=== PATIENT | male | born 1975 | race American Indian/Alaskan Native ===

== ENCOUNTER 2019-03-28 21:28 | Inpatient (IN) | payer MEDICAID ==
[2019-03-28] MEDS ORDERED: Sodium Chloride 0.9% 1,000 ML IV ONE (21:48)
--- NOTE | 2019-03-28 21:48 | C.PDOC ---
History Of Present Illness 43 y/o male comes in complaining of abdominal pain, nausea, and vomiting x2 days. Patient drinks socially. Denies recent alcohol use. Denies fever or chills. Time Seen by Provider: 03/28/19 21:48 Chief Complaint (Nursing): Abdominal Pain History Per: Patient History/Exam Limitations: no limitations Onset/Duration Of Symptoms: Days Current Symptoms Are (Timing): Still Present Severity: Moderate Pain Scale Rating Of: 4 Location Of Pain/Discomfort: Diffuse Radiation Of Pain To:: None Associated Symptoms: Nausea, Vomiting. denies: Fever, Chills Exacerbating Factors: None Alleviating Factors: None Last Bowel Movement: Today Recent travel outside of the [place]: No Past Medical History Reviewed: Historical Data, Nursing Documentation, Vital Signs Vital Signs: Last Vital Signs Temp 98.3 F 03/28/19 21:38 Pulse 63 03/28/19 21:38 Resp 16 03/28/19 21:38 BP 168/92 H 03/28/19 21:38 Pulse Ox 100 03/28/19 21:38 Primary Care Provider: Non [facility] Provider, Family History: States: No Known Family Hx - Social History Hx Alcohol Use: Yes Hx Substance Use: No Review Of Systems Constitutional: Negative for: Fever, Chills Cardiovascular: Negative for: Chest Pain, Palpitations Respiratory: Negative for: Cough, Shortness of Breath Gastrointestinal: Positive for: Nausea, Vomiting, Abdominal Pain Neurological: Negative for: Weakness, Numbness Physical Exam - Physical Exam Appears: Non-toxic, No Acute Distress Skin: Warm, Dry Head: Normacephalic Eye(s): bilateral: Normal Inspection Oral Mucosa: Moist Neck: Trachea Midline, Supple Cardiovascular: Rhythm Regular Respiratory: No Rales, No Rhonchi, No Wheezing Gastrointestinal/Abdominal: Soft, Tenderness (diffusely tender), No Distention, No Guarding, No Rebound, Hernia (right inguinal , small, reducible) Back: No CVA Tenderness Extremity: No Tenderness Extremity: Bilateral: Normal Color And Temperature Pulses: Left Dorsalis Pedis: Normal, Right Dorsalis Pedis: Normal Neurological/Psych: Oriented x3 Gait: Steady ED Course And Treatment - Laboratory Results Result Diagrams: 03/28/19 22:16 03/28/19 22:16 O2 Sat by Pulse Oximetry: 100 (RA) Pulse Ox Interpretation: Normal Progress Note: Plan: Labs, UA, IV fluids, toradol, zofran. Disposition Discussed With Dr.: Greg Glaser Comment: accepted the pt on his service and took over the care at 2:48 AM Doctor Will See Patient In The: ED Counseled Patient/Family Regarding: Studies Performed, Diagnosis - Disposition Disposition: HOSPITALIZED Disposition Time: 21:48 Condition: FAIR Forms: [facility] ([place]ian) - POA Present On Arrival: Poor Glycemic Control - Clinical Impression Clinical Impression: Abdominal pain, Acute appendicitis - Scribe Statement The provider has reviewed the documentation as recorded by the Alvina Hudson Provider Attestation: All medical record entries made by the Alvina were at my direction and perso diane dictated by me. I have reviewed the chart and agree that the record accurately reflects my personal performance of the history, physical exam, medical decision making, and the department course for this patient. I have also personally directed, reviewed, and agree with the discharge instructions and disposition. Decision To Admit - Pt Status Changed To: Hospital Disposition Of: Inpatient - Admit Certification Admit to Inpatient:: After my assessment, the patient will require hospitali zation for at least two midnights. This is because of the severity of symptoms shown, intensity of services needed, and/or the medical risk in this patient being treated as an outpatient. - InPatient: Physician Admission Certification:: After my assessment, the patient will require hospitalization for at least two midnights. This is because of the severity of symptoms shown, intensity of services needed, and/or the medical risk in this patient being treated as an outpatient. - . Bed Request Type: Regular Admitting Physician: Greg Glaser Patient Diagnosis: Abdominal pain, Acute appendicitis
[2019-03-28] MEDS ORDERED: Sodium Chloride 0.9% 1,000 ML ONE (22:04)
[2019-03-28 22:22] LABS: BASO % 0.3 % (0.0-2.0); HEMOGLOBIN 13.3 g/dL (12.0-18.0); LYMPH # 0.7 K/uL (1.0-4.3); LYMPH % 6.8 % (20.0-40.0); MEAN CELL VOLUME 83.8 fL (80.0-94.0); MEAN CORPUSCULAR HEMOGLOBIN 27.6 pg (27.0-31.0); MEAN CORPUSCULAR HGB CONC 32.9 g/dL (33.0-37.0); MEAN PLATELET VOLUME 9.4 fL (7.2-11.7); MONO # 0.2 K/uL (0.0-0.8); MONO % 2.4 % (0.0-10.0); NEUT # 8.8 K/uL (1.8-7.0); NEUT % 90.5 % (50.0-75.0); PLATELET COUNT 201 K/uL (130-400); RBC 4.83 Mil/uL (4.40-5.90); RED CELL DISTRIBUTION WIDTH 13.2 % (11.5-14.5); WHITE BLOOD COUNT 9.7 K/uL (4.8-10.8)
[2019-03-28 22:24] LABS: SQUAMOUS EPITHIAL 1 /hpf (0-5); URINE BILIRUBIN NEGATIVE (NEGATIVE); URINE BLOOD 2+ (NEGATIVE); URINE CLARITY Hazy (Clear); URINE COLOR Yellow (YELLOW); URINE GLUCOSE (UA) NORMAL (Normal); URINE LEUKOCYTE ESTERASE NEG Leu/uL (Negative); URINE PROTEIN NEGATIVE (NEGATIVE); URINE UROBILINOGEN NORMAL mg/dL (0.2-1.0)
[2019-03-28 22:32] LABS: ALB/GLOB RATIO 1.1 (1.0-2.1); ALBUMIN 4.5 g/dL (3.5-5.0); ALT/SGPT 31 U/L (21-72); AST/SGOT 25 U/L (17-59); BLOOD UREA NITROGEN 11 mg/dL (9-20); CALCIUM 9.7 mg/dl (8.6-10.4); GFR NON-AFRICAN AMERICAN > 60; LIPASE 81 U/L (23-300)
[2019-03-28 23:10] LABS: LYMPHOCYTE 7 % (20-40); MONOCYTE 3 % (0-10); NEUTROPHIL 90 % (50-75); TOTAL CELLS COUNTED 100
[2019-03-28 23:11] LABS: PLATELET ESTIMATE NORMAL (NORMAL)
[2019-03-29] MEDS ORDERED: Piperacillin/Tazobact 3.375 gm 100 ML IVPB STA (02:40)
[2019-03-29] MEDS ORDERED: Piperacillin/Tazobact 3.375 gm 100 ML IVPB ONE (02:53)
[2019-03-29] MEDS ORDERED: Piperacillin/Tazobact 3.375 GM in Sodium Chloride 100 ML IVPB SCH (05:15)
--- NOTE | 2019-03-29 05:16 | CP.PCM.HP ---
History of Present Illness - History of Present Illness History of Present Illness: H&P Note for Dr. Glaser HPI: 43 year old male, with no significant past medical history, who presents to [facility] with RLQ pain for 2 days duration. Patient states 2 days ago he was eating oxtail and started having vague periumbilical pain. After a few hours the pain radiated to the RLQ, described as sharp, throbbing, uncomfortable. He had several bouts of nausea and vomiting yesterday and was unable to tolerate anything by mouth. Admits to chills, denies fevers. Pain medication from ER helped with symptoms. No known aggravating or alleviating factors. ROS otherwise negative except as stated above. PMH: Denies PSH: Oral surgery childhood FH: Mother w/ diabetes SH: Social drinker, denies tobacco or illicit drug use. Heavy lifting for work. ALL: NKDA Meds: None Present on Admission - Present on Admission Any Indicators Present on Admission: No Review of Systems - Constitutional Constitutional: Chills. absent: Fever, Weight Loss - EENT Eyes: absent: Blurred Vision, Change in Vision - Cardiovascular Cardiovascular: absent: Chest Pain, Dyspnea - Respiratory Respiratory: absent: Cough, Dyspnea - Gastrointestinal Gastrointestinal: Abdominal Pain, Bloating, Nausea, Vomiting. absent: Constipation, Diarrhea - Genitourinary Genitourinary: absent: Difficulty Urinating, Dysuria - Musculoskeletal Musculoskeletal: absent: Back Pain, Neck Pain - Integumentary Integumentary: absent: Bleeding Lesions, Changing Lesions - Neurological Neurological: absent: Confusion, Dizziness - Psychiatric Psychiatric: absent: Anxiety, Depression Past Patient History - Past Medical History & Family History Past Medical History?: No - Past Social History Smoking Status: Never Smoked - MUSCULOSKELETAL/RHEUMATOLOGICAL Hx Falls: No - PSYCHIATRIC Hx Substance Use: No - SURGICAL HISTORY Hx Surgeries: No - ANESTHESIA Hx Anesthesia: Yes Hx Anesthesia Reactions: No Meds Allergies/Adverse Reactions: Allergies Allergy/AdvReac Type Severity Reaction Status Date / Time No Known Allergies Allergy Unverified 03/28/19 21:41 Physical Exam - Constitutional Appears: Well, Non-toxic, No Acute Distress - Head Exam Head Exam: ATRAUMATIC, NORMAL INSPECTION, NORMOCEPHALIC - Eye Exam Eye Exam: EOMI - ENT Exam ENT Exam: Mucous Membranes Moist - Respiratory Exam Respiratory Exam: NORMAL BREATHING PATTERN. absent: Wheezes, Respiratory Distress - Cardiovascular Exam Cardiovascular Exam: REGULAR RHYTHM. absent: Tachycardia - GI/Abdominal Exam GI & Abdominal Exam: Distended, Hernia, Normal Bowel Sounds, Soft, Tenderness Additional comments: reducible right inguinal hernia - Extremities Exam Extremities exam: Positive for: normal inspection, pedal pulses present - Neurological Exam Neurological exam: Alert, Oriented x3 - Psychiatric Exam Psychiatric exam: Normal Affect, Normal Mood - Skin Skin Exam: Dry, Intact, Normal Color, Warm Results - Vital Signs Recent Vital Signs: Last Vital Signs Temp 98.3 F 03/29/19 03:45 Pulse 75 03/29/19 03:45 Resp 20 03/29/19 03:45 BP 161/94 H 03/29/19 03:45 Pulse Ox 99 03/29/19 03:50 - Labs Result Diagrams: 03/28/19 22:16 03/28/19 22:16 Labs: Laboratory Results - last 24 hr 03/28/19 03/28/19 03/28/19 22:16 22:16 22:16 WBC 9.7 RBC 4.83 Hgb 13.3 Hct 40.4 MCV 83.8 MCH 27.6 MCHC 32.9 L RDW 13.2 Plt Count 201 MPV 9.4 Neut % (Auto) 90.5 H Lymph % (Auto) 6.8 L [place] % (Auto) 2.4 Eos % (Auto) 0.0 Baso % (Auto) 0.3 Neut # (Auto) 8.8 H Lymph # (Auto) 0.7 L [place] # (Auto) 0.2 Eos # (Auto) 0.0 Baso # (Auto) 0.0 Neutrophils % (Manual) 90 H Lymphocytes % (Manual) 7 L Monocytes % (Manual) 3 Platelet Estimate Normal RBC Morphology Normal Sodium 137 Potassium 3.7 Chloride 99 Carbon Dioxide 26 Anion Gap 16 BUN 11 Creatinine 1.0 Est GFR ( Amer) > 60 Est GFR (Non-Af Amer) > 60 Random Glucose 137 H Calcium 9.7 Total Bilirubin 0.5 AST 25 ALT 31 Alkaline Phosphatase 73 Total Protein 8.7 H Albumin 4.5 Globulin 4.2 H Albumin/Globulin Ratio 1.1 Lipase 81 Urine Color Yellow Urine Clarity Hazy Urine pH 5.0 Ur Specific [place] 1.024 Urine Protein Negative Urine Glucose (UA) Normal Urine Ketones 2+ H Urine Blood 2+ H Urine Nitrate Negative Urine Bilirubin Negative Urine Urobilinogen Normal Ur Leukocyte Esterase Neg Urine WBC (Auto) 1 Urine RBC (Auto) 4 H Ur Squamous Epith Cells 1 Assessment & Plan - Assessment and Plan (Free Text) Assessment: 43M w/ acute appendicitis also noted to have reducible, right inguinal hernia Plan: NPO IVF IV Abx Antiemetics and analgesics AM labs, coags Type and Screen CXR Proceed to OR later today D/w Dr. Jailyn Cruz PGY1
[2019-03-29 06:32] LABS: INR 1.2; PARTIAL THROMBOPLASTIN TIME 31.3 SECONDS (21-34); PROTHROMBIN TIME 12.7 SECONDS (9.7-12.2)
[2019-03-29 06:33] LABS: BLOOD UREA NITROGEN 12 mg/dL (9-20); CALCIUM 8.9 mg/dl (8.6-10.4); GFR NON-AFRICAN AMERICAN > 60; HEMOGLOBIN 12.7 g/dL (12.0-18.0); MEAN CELL VOLUME 82.3 fL (80.0-94.0); MEAN PLATELET VOLUME 9.5 fL (7.2-11.7); RBC 4.55 Mil/uL (4.40-5.90)
[2019-03-29] MEDS: Lactated Ringer's 1,000 ML IV SCH ×2 (06:51→14:38)
[2019-03-29] MEDS ORDERED: Bupivacaine 0.5%/Epi 1:200,000 (10 ML SOL) ONE (10:00)
[2019-03-29] MEDS ORDERED: Midazolam 2 MG/2 ML VIAL ONE (10:08)
[2019-03-29] MEDS ORDERED: Propofol 10 mg/ml Inj (20 ML) ONE (10:09)
[2019-03-29] MEDS: Piperacill/Tazo 3.375gm in Dex 3.375 GM/50 ML BAG IVPB SCH ×4 (10:10→20:56)
[2019-03-29] MEDS ORDERED: HYDROmorphone 0.5 mg/0.5 ml ISec IVP PRN (10:42)
[2019-03-29] MEDS ORDERED: Neostigmine 1:1000 (1 mg/ml) Inj ONE (10:51)
[2019-03-29] MEDS ORDERED: Succinylcholine Chloride 20 mg/ml Syr (5 ml) IV ONE (10:51)
--- NOTE | 2019-03-29 11:23 | PCM.SURG1 ---
Surgeon's Initial Post Op Note - Surgeon's Notes Surgeon: Dr. Glaser Rig Hand: Dr. Cruz, Dr. Fernandez Type of Anesthesia: General Endo Anesthesia Administered By: Dr. Morales Pre-Operative Diagnosis: acute appendicitis Operative Findings: inflamed, enlarged, dilated appendix, purulent spillage, copious irrigation w/ mireya drain placement Post-Operative Diagnosis: same Operation Performed: laparoscopic appendectomy w/ mireya drain placement Specimen/Specimens Removed: appendix Estimated Blood Loss: EBL {In ML}: 15 Blood Products Given: N/A Drains Used: Mireya Post-Op Condition: Good Date of Surgery/Procedure: 03/29/19 Time of Surgery/Procedure: 11:22
--- NOTE | 2019-03-29 11:30 | PCM.OP ---
Operative Report - Operative Report Date of Surgery/Procedure: 03/29/19 Time of Surgery/Procedure: 11:21 Surgeon: Dr. Glaser Robotic Welding Operator: Jim PGY2, Anthony PGY1 Anesthesia/Sedation: General ENdo Dr. Morales Pre-Operative Diagnosis: Acute appendicitis Post-Operative Diagnosis: Acute Appendicitis Indication for Surgery: Acute appendicitis Operative Findings: Acute appendicitis, adhesions, appednix filled with pus, tip abscess Procedure/Operation Description: Procedure: Laparoscopic Appendectomy 43M with no PMH who was admitted for acute appendicitis. Patient planned for Laparoscopic Appendectomy possible open. Consent was obtained prior to the procedure from patient. Risks and benefits were discussed with the patient who verbalized understanding and agreement. Patient was take to the operating room and placed in supine position. SCDs were applied to patient's legs. General endotracheal anesthesia was administered for the procedure. Patient was prepped with chlorhexadine and drapped in the usual sterile fashion. Timeout was performed. An supraumbilical incision was made usin g #11 blade. Veress needle was inserted into incision and CO2 insufflation was attached. The abdomen was insufflated to optimal pressure of 15 mmHg. Veress needle was removed and a 11 mm trocar was inserted. 10 mm 0 degree scope was inserted and abdominal contents were visualized. No injuries or gross spillage noted. Two more incisions were made using #11 blade in the suprapubic area and LLQ. Two 5mm trocars were then inserted under direct visualization. Next, the appendix was identified in the RLQ by sweeping small bowel away. Appendix was adhesed to small bowel and mesentery. Appendix was noted to be severely inflamed and enlarged. Appenix was then dissected away from small bowel and mesentery using blunt dissectly and electrocautery via Liasure. Appendix was then grasped and reposition. Small amount of pus was noted to fall from the tip. Next, base of appendix was clear in order to staple across it. Endoscopic [place] stapler (blue load) was used to divide the appendix from cecum. Endocatch bag was used to collect the specimen. There was no evidence of bleeding from either staple line. Appendix was removed from supraumbilical incision. The abdomen with irrgated. The abdominal contents were then inspected for any other patholgy. Everything appeared normal. 19 fr mireya drain was then placed in the suprapubic incision and sutured in with a 0 silk suture. The abdomen was deflated and all remaining ports removed. The fascia of the supraumbilical incision was closed using 0 Vicryl on UR6 needle. All three incision were then closed with subcuticular 4-0 monocryl. Dermabond was applied as sterile dressing. All nursing counts were correct and confirmed. Patient tolerated procedure well with no apparent complications. EBL was 15cc Patient was extubated and transferred to PACU for recovery. Estimated Blood Loss: 15cc Complications: None Discharge & Condition: good, Patient was extubated and transferred to PACU for recovery. Patient to return to med/surg floor with regular diet.
[2019-03-29] MEDS: oxyCODONE 5 mg Immediate Release Tab PO PRN (14:37)
[2019-03-29 16:39] VITALS: RESP 20
--- NOTE | 2019-03-29 17:18 | CT ---
Date of service: 03/29/2019 PROCEDURE: CT Abdomen and Pelvis with contrast HISTORY: abd pain COMPARISON: None. TECHNIQUE: Contrast dose: 100 mL of Visipaque 320 intravenously. Axial and reformatted coronal and sagittal CT images of the abdomen and pelvis were obtained after IV contrast administration. Radiation dose: Total exam DLP = 638.19 mGy-cm. This CT exam was performed using one or more of the following dose reduction techniques: Automated exposure control, adjustment of the mA and/or kV according to patient size, and/or use of iterative reconstruction technique. FINDINGS: LOWER THORAX: Mild cardiomegaly. No evidence of pleural effusion. Mildly dilated distal esophagus. LIVER: Unremarkable. No gross lesion or ductal dilatation. GALLBLADDER AND BILE DUCTS: Unremarkable. PANCREAS: Unremarkable. No gross lesion or ductal dilatation. SPLEEN: Unremarkable. ADRENALS: Unremarkable. No mass. KIDNEYS AND URETERS: Unremarkable. No hydronephrosis. No solid mass. VASCULATURE: Unremarkable. No aortic aneurysm. Small foci of aortic atherosclerotic calcification noted. BOWEL: Unremarkable. No obstruction. No gross mural thickening. APPENDIX: Markedly enlarged appendix contains appendicoliths suggestive of appendix colitis. No evidence of abscess formation or free air to suggest rupture appendicitis. PERITONEUM: Unremarkable. No free fluid. No free air. LYMPH NODES: Unremarkable. No enlarged lymph nodes. BLADDER: Unremarkable. REPRODUCTIVE: Unremarkable. BONES: No acute fracture. OTHER FINDINGS: Fat containing right inguinal hernia noted. IMPRESSION: Findings consistent with acute appendicitis with admitted correlates. No evidence of abscess formation or free air. Mild cardiomegaly. Moderate size right inguinal hernia contains fat. Preliminary report was submitted by [facility] Radiology contains concordant findings.
--- NOTE | 2019-03-29 22:45 | RAD ---
Date of service: 03/29/2019 HISTORY: pre-op COMPARISON: No prior. TECHNIQUE: 1 view obtained. FINDINGS: LUNGS: No active pulmonary disease. PLEURA: No significant pleural effusion identified, no pneumothorax apparent. CARDIOVASCULAR: No aortic atherosclerotic calcification present. Normal cardiac size. No pulmonary vascular congestion. OSSEOUS STRUCTURES: No significant abnormalities. VISUALIZED UPPER ABDOMEN: Normal. OTHER FINDINGS: None. IMPRESSION: No active disease.
[2019-03-30] MEDS: Lactated Ringer's 1,000 ML IV SCH ×4 (00:01→21:17)
[2019-03-30] MEDS: Piperacill/Tazo 3.375gm in Dex 3.375 GM/50 ML BAG IVPB SCH ×4 (04:04→21:12)
--- NOTE | 2019-03-30 08:19 | CP.PCM.PN ---
Subjective - Date & Time of Evaluation Date of Evaluation: 03/30/19 Time of Evaluation: 08:16 - Subjective Subjective: Surgery Progress Note- Dr. Glaser s/p Lap Appendectomy POD#1. Has abdominal incisional pain. Denies fevers, chills. No appetite at this time, drank water and juice. James 400cc of serosang fluid, purulent stained. will continue IVAbx. Objective - Vital Signs/Intake and Output Vital Signs (last 24 hours): Temp Pulse Resp BP Pulse Ox 99.7 F H 87 20 120/62 97 03/30/19 00:03 03/30/19 00:03 03/30/19 00:03 03/30/19 00:03 03/29/19 16:37 Intake and Output: 03/30/19 03/30/19 06:59 18:59 Intake Total 2547.5 Output Total 340 Balance 2207.5 - Medications Medications: Current Medications Acetaminophen (Tylenol 325mg Tab) 650 mg PO Q6 PRN PRN Reason: Fever >100.4 F Lactated Ringer's (Lactated Ringer's) 1,000 mls @ 125 mls/hr IV .Q8H BEN Last Admin: 03/30/19 00:01 Dose: 125 mls/hr Piperacillin Sod/Tazobactam Sod (Zosyn 3.375 Gm Iv Premix) 3.375 gm in 50 mls @ 100 mls/hr IVPB Q6H BEN; Protocol Last Admin: 03/30/19 04:04 Dose: 100 mls/hr Ketorolac Tromethamine (Toradol) 30 mg IVP Q6 PRN PRN Reason: Pain, moderate (4-7) Ondansetron HCl (Zofran Inj) 4 mg IVP Q6H PRN PRN Reason: Nausea/Vomiting Oxycodone HCl (Oxycodone Immediate Release Tab) 5 mg PO Q6 PRN PRN Reason: Pain, severe (8-10) Last Admin: 03/29/19 14:37 Dose: 5 mg Pneumococcal Polyvalent Vaccine (Pneumovax 23 Vaccine) 0.5 ml IM .ONCE ONE Stop: 03/31/19 10:01 Tramadol HCl (Ultram) 50 mg PO TID PRN PRN Reason: Pain, moderate (4-7) Last Admin: 03/30/19 07:38 Dose: 50 mg - Labs Labs: 03/29/19 06:09 03/29/19 06:09 PT 12.7 SECONDS (9.7-12.2) H 03/29/19 06:09 INR 1.2 03/29/19 06:09 APTT 31.3 SECONDS (21-34) 03/29/19 06:09 - Constitutional Appears: Non-toxic, No Acute Distress - Eye Exam Eye Exam: EOMI. absent: Scleral icterus - ENT Exam ENT Exam: Mucous Membranes Moist - Respiratory Exam Respiratory Exam: NORMAL BREATHING PATTERN. absent: Accessory Muscle Use, Respiratory Distress - Cardiovascular Exam Cardiovascular Exam: REGULAR RHYTHM, +S1, +S2. absent: Bradycardia, Tachycardia - GI/Abdominal Exam GI & Abdominal Exam: Soft, Tenderness (lior-incisional). absent: Distended, Firm, Guarding, Rigid Additional comments: James drain 400cc serosang fluid, likely irrigation from OR - Neurological Exam Neurological Exam: Alert, Awake, Oriented x3 - Psychiatric Exam Psychiatric exam: Normal Affect - Skin Skin Exam: Intact, Warm Assessment and Plan - Assessment and Plan (Free Text) Assessment: 43M s/p Lap appendectomy POD#1 Plan: - pain control PRN - diet as tolerated - anti-emetic PRN - continue IVAbx - d/w Dr. Glaser Surgical attending PGY2
[2019-03-30 08:43] LABS: HEMOGLOBIN 12.3 g/dL (12.0-18.0); MEAN CELL VOLUME 82.5 fL (80.0-94.0); MEAN CORPUSCULAR HEMOGLOBIN 28.4 pg (27.0-31.0); MEAN CORPUSCULAR HGB CONC 34.4 g/dL (33.0-37.0); MEAN PLATELET VOLUME 9.6 fL (7.2-11.7); RBC 4.33 Mil/uL (4.40-5.90); RED CELL DISTRIBUTION WIDTH 13.1 % (11.5-14.5); WHITE BLOOD COUNT 10.5 K/uL (4.8-10.8)
[2019-03-30 08:57] LABS: BLOOD UREA NITROGEN 14 mg/dL (9-20); CALCIUM 8.8 mg/dl (8.6-10.4); GFR NON-AFRICAN AMERICAN 55
[2019-03-30] MEDS: oxyCODONE 5 mg Immediate Release Tab PO PRN ×2 (12:30→23:46)
[2019-03-31] MEDS: Simethicone 80 mg Chewtab PO PRN ×2 (02:09→09:41)
[2019-03-31] MEDS: Piperacill/Tazo 3.375gm in Dex 3.375 GM/50 ML BAG IVPB SCH ×5 (03:37→21:20)
[2019-03-31 07:52] LABS: BASO % 0.3 % (0.0-2.0); HEMOGLOBIN 11.3 g/dL (12.0-18.0); LYMPH # 1.4 K/uL (1.0-4.3); LYMPH % 12.7 % (20.0-40.0); MEAN CELL VOLUME 82.5 fL (80.0-94.0); MEAN CORPUSCULAR HEMOGLOBIN 27.8 pg (27.0-31.0); MEAN CORPUSCULAR HGB CONC 33.7 g/dL (33.0-37.0); MEAN PLATELET VOLUME 9.5 fL (7.2-11.7); MONO # 0.8 K/uL (0.0-0.8); MONO % 7.6 % (0.0-10.0); NEUT # 8.8 K/uL (1.8-7.0); NEUT % 79.4 % (50.0-75.0); RBC 4.06 Mil/uL (4.40-5.90); RED CELL DISTRIBUTION WIDTH 13.1 % (11.5-14.5); WHITE BLOOD COUNT 11.1 K/uL (4.8-10.8)
[2019-03-31 08:06] LABS: BLOOD UREA NITROGEN 16 mg/dL (9-20); CALCIUM 8.8 mg/dl (8.6-10.4); GFR NON-AFRICAN AMERICAN > 60
[2019-03-31] MEDS ORDERED: Pneumococcal 23-Valent Vaccine IM ONE (10:00)
[2019-03-31] MEDS ORDERED: Potassium Chloride 20 mEq/15 ml LIQ UD PO ONE (10:30)
--- NOTE | 2019-03-31 10:32 | CP.PCM.PN ---
Subjective - Date & Time of Evaluation Date of Evaluation: 03/31/19 Time of Evaluation: 08:27 - Subjective Subjective: Surgery Progress note. Dr. Glaser Pt seen and examined at bedside. No acute events overnight. Still having some abdominal discomfort at the drain site. No F/C. No problems urinating. Tolerating liquid diet, does not state he has an appetite. No new complaints. Objective - Vital Signs/Intake and Output Vital Signs (last 24 hours): Temp Pulse Resp BP Pulse Ox 98.3 F 85 20 139/84 96 03/31/19 09:00 03/31/19 09:00 03/31/19 09:00 03/31/19 09:00 03/31/19 09:00 Intake and Output: 03/31/19 03/31/19 06:59 18:59 Intake Total 2887.5 Output Total 180 Balance 2707.5 - Medications Medications: Current Medications Acetaminophen (Tylenol 325mg Tab) 650 mg PO Q6 PRN PRN Reason: Fever >100.4 F Piperacillin Sod/Tazobactam Sod (Zosyn 3.375 Gm Iv Premix) 3.375 gm in 50 mls @ 100 mls/hr IVPB Q6H BEN; Protocol Last Admin: 03/31/19 09:39 Dose: Not Given Potassium Chloride (Potassium Chloride 20 Meq/100 Ml) 20 meq in 100 mls @ 50 mls/hr IVPB Q2H BEN Stop: 03/31/19 14:59 Ketorolac Tromethamine (Toradol) 30 mg IVP Q6 PRN PRN Reason: Pain, moderate (4-7) Ondansetron HCl (Zofran Inj) 4 mg IVP Q6H PRN PRN Reason: Nausea/Vomiting Oxycodone HCl (Oxycodone Immediate Release Tab) 5 mg PO Q6 PRN PRN Reason: Pain, severe (8-10) Last Admin: 03/30/19 23:46 Dose: 5 mg Potassium Chloride (Potassium Chloride Oral Soln) 40 meq PO ONCE ONE Stop: 03/31/19 10:31 Simethicone (Mylicon Chew Tab) 80 mg PO TID PRN PRN Reason: GI distress Last Admin: 03/31/19 09:41 Dose: 80 mg Tramadol HCl (Ultram) 50 mg PO TID PRN PRN Reason: Pain, moderate (4-7) Last Admin: 03/31/19 02:09 Dose: 50 mg - Labs Labs: 03/31/19 07:40 03/31/19 07:40 PT 12.7 SECONDS (9.7-12.2) H 03/29/19 06:09 INR 1.2 03/29/19 06:09 APTT 31.3 SECONDS (21-34) 03/29/19 06:09 - Constitutional Appears: Well, Non-toxic, No Acute Distress - Head Exam Head Exam: ATRAUMATIC, NORMAL INSPECTION, NORMOCEPHALIC - Eye Exam Eye Exam: EOMI, Normal appearance. absent: Scleral icterus - ENT Exam ENT Exam: Mucous Membranes Moist - Respiratory Exam Respiratory Exam: NORMAL BREATHING PATTERN. absent: Accessory Muscle Use, Respiratory Distress - Cardiovascular Exam Cardiovascular Exam: RRR. absent: JVD - GI/Abdominal Exam GI & Abdominal Exam: Soft. absent: Distended, Guarding, Rigid, Rebound Additional comments: Mild tenderness to palpation RLQ. Drain in place with serosang output noted. - Extremities Exam Extremities Exam: Normal Inspection. absent: Calf Tenderness - Neurological Exam Neurological Exam: Alert, Awake, Oriented x3 - Psychiatric Exam Psychiatric exam: Normal Affect, Normal Mood - Skin Skin Exam: Dry, Intact, Normal Color, Warm Assessment and Plan - Assessment and Plan (Free Text) Assessment: 43yo M s/p Lap Appendectomy POD 2. Plan: - Continue IV Abx - Maintain Drain. Record outputs - Advance diet as tolerated - Pain management - Antiemetics as needed - Encourage OOBTC and Ambulate Further recs as per Dr. Jailyn Nguyen PGY2 surgery
[2019-03-31] MEDS: Enoxaparin 40 mg Syringe SC SCH (12:46)
[2019-03-31] MEDS: oxyCODONE 5 mg Immediate Release Tab PO PRN (22:14)
[2019-04-01] MEDS: Piperacill/Tazo 3.375gm in Dex 3.375 GM/50 ML BAG IVPB SCH ×4 (02:48→21:21)
[2019-04-01] MEDS: oxyCODONE 5 mg Immediate Release Tab PO PRN (05:32)
[2019-04-01 06:51] LABS: BASO % 0.2 % (0.0-2.0); EOS # 0.2 K/uL (0.0-0.7); HEMOGLOBIN 10.8 g/dL (12.0-18.0); LYMPH # 1.5 K/uL (1.0-4.3); LYMPH % 16.2 % (20.0-40.0); MEAN CELL VOLUME 82.8 fL (80.0-94.0); MEAN CORPUSCULAR HEMOGLOBIN 27.8 pg (27.0-31.0); MEAN CORPUSCULAR HGB CONC 33.6 g/dL (33.0-37.0); MEAN PLATELET VOLUME 9.3 fL (7.2-11.7); MONO # 0.8 K/uL (0.0-0.8); MONO % 8.5 % (0.0-10.0); NEUT # 6.7 K/uL (1.8-7.0); NEUT % 73.1 % (50.0-75.0); RBC 3.87 Mil/uL (4.40-5.90); RED CELL DISTRIBUTION WIDTH 12.9 % (11.5-14.5); WHITE BLOOD COUNT 9.1 K/uL (4.8-10.8)
[2019-04-01 07:29] LABS: BLOOD UREA NITROGEN 13 mg/dL (9-20); CALCIUM 8.3 mg/dl (8.6-10.4); GFR NON-AFRICAN AMERICAN > 60
[2019-04-01] MEDS: Enoxaparin 40 mg Syringe SC SCH (09:46)
--- NOTE | 2019-04-01 10:57 | CP.PCM.PN ---
Subjective - Date & Time of Evaluation Date of Evaluation: 04/01/19 Time of Evaluation: 10:54 - Subjective Subjective: Surgery Progress Note for Dr. Glaser 43M seen and evaluated at bedside this morning. No acute events overnight. No complaints this morning. 5cc serosanguinous output from mireya drain. Denies f/c, n/v/d, SOB, CP, or urinary symptoms. Objective - Vital Signs/Intake and Output Vital Signs (last 24 hours): Temp Pulse Resp BP Pulse Ox 99 F 91 H 20 114/72 96 04/01/19 07:46 04/01/19 07:46 04/01/19 07:46 04/01/19 07:46 04/01/19 07:46 Intake and Output: 04/01/19 04/01/19 06:59 18:59 Intake Total 200 Output Total 5 505 Balance -5 -305 - Medications Medications: Current Medications Acetaminophen (Tylenol 325mg Tab) 650 mg PO Q6 PRN PRN Reason: Fever >100.4 F Enoxaparin Sodium (Lovenox) 40 mg SC DAILY BEN Last Admin: 04/01/19 09:46 Dose: 40 mg Piperacillin Sod/Tazobactam Sod (Zosyn 3.375 Gm Iv Premix) 3.375 gm in 50 mls @ 100 mls/hr IVPB Q6H BEN; Protocol Last Admin: 04/01/19 09:46 Dose: 100 mls/hr Ondansetron HCl (Zofran Inj) 4 mg IVP Q6H PRN PRN Reason: Nausea/Vomiting Oxycodone HCl (Oxycodone Immediate Release Tab) 5 mg PO Q6 PRN PRN Reason: Pain, severe (8-10) Last Admin: 04/01/19 05:32 Dose: 5 mg Simethicone (Mylicon Chew Tab) 80 mg PO TID PRN PRN Reason: GI distress Last Admin: 03/31/19 09:41 Dose: 80 mg Tramadol HCl (Ultram) 50 mg PO TID PRN PRN Reason: Pain, moderate (4-7) Last Admin: 04/01/19 08:16 Dose: 50 mg - Labs Labs: 04/01/19 06:44 04/01/19 06:44 PT 12.7 SECONDS (9.7-12.2) H 03/29/19 06:09 INR 1.2 03/29/19 06:09 APTT 31.3 SECONDS (21-34) 03/29/19 06:09 - Constitutional Appears: Well, Non-toxic, No Acute Distress - Head Exam Head Exam: ATRAUMATIC, NORMAL INSPECTION, NORMOCEPHALIC - Eye Exam Eye Exam: EOMI - ENT Exam ENT Exam: Mucous Membranes Moist - Respiratory Exam Respiratory Exam: NORMAL BREATHING PATTERN. absent: Wheezes, Respiratory Distress - GI/Abdominal Exam GI & Abdominal Exam: Soft, Tenderness, Normal Bowel Sounds. absent: Distended Additional comments: surgical incision sites c/d/i - Neurological Exam Neurological Exam: Alert, Awake, Oriented x3 - Psychiatric Exam Psychiatric exam: Normal Affect, Normal Mood - Skin Skin Exam: Dry, Intact, Normal Color, Warm Assessment and Plan - Assessment and Plan (Free Text) Assessment: 43M s/p laparoscopic appenddectomy POD3 Plan: Remove mireya drain today ADAT Antiemetics and analgesics PRN Replete electrolyes as needed Continue IV Abx Encourage ambulation/OOBTC/IS D/w Dr. Jailyn Cruz PGY1
[2019-04-01] MEDS ORDERED: Potassium Chloride 20 mEq ER Tab PO ONE (11:05)
[2019-04-01] MEDS ORDERED: Magnesium Hydroxide Susp 30 ml UD PO ONE (16:08)
[2019-04-01] MEDS: Simethicone 80 mg Chewtab PO PRN (16:52)
[2019-04-02] MEDS: Piperacill/Tazo 3.375gm in Dex 3.375 GM/50 ML BAG IVPB SCH ×3 (03:30→14:29)
[2019-04-02] MEDS: Enoxaparin 40 mg Syringe SC SCH (09:14)
[2019-04-02] MEDS: Simethicone 80 mg Chewtab PO PRN (09:14)
[2019-04-02] MEDS ORDERED: Potassium Chloride 20 mEq ER Tab PO ONE (10:28)
--- NOTE | 2019-04-02 10:59 | CP.PCM.DIS ---
Provider - Provider Date of Admission: 03/29/19 02:46 Attending physician: Greg Glaser MD Time Spent in preparation of Discharge (in minutes): 60 Hospital Course - Lab Results Lab Results: Most Recent Lab Values WBC 9.1 K/uL (4.8-10.8) 04/01/19 06:44 RBC 3.87 Mil/uL (4.40-5.90) L 04/01/19 06:44 Hgb 10.8 g/dL (12.0-18.0) L 04/01/19 06:44 Hct 32.0 % (35.0-51.0) L 04/01/19 06:44 MCV 82.8 fL (80.0-94.0) 04/01/19 06:44 MCH 27.8 pg (27.0-31.0) 04/01/19 06:44 MCHC 33.6 g/dL (33.0-37.0) 04/01/19 06:44 RDW 12.9 % (11.5-14.5) 04/01/19 06:44 Plt Count 187 K/uL (130-400) 04/01/19 06:44 MPV 9.3 fL (7.2-11.7) 04/01/19 06:44 Neut % (Auto) 73.1 % (50.0-75.0) 04/01/19 06:44 Lymph % (Auto) 16.2 % (20.0-40.0) L 04/01/19 06:44 [place] % (Auto) 8.5 % (0.0-10.0) 04/01/19 06:44 Eos % (Auto) 2.0 % (0.0-4.0) 04/01/19 06:44 Baso % (Auto) 0.2 % (0.0-2.0) 04/01/19 06:44 Neut # (Auto) 6.7 K/uL (1.8-7.0) 04/01/19 06:44 Lymph # (Auto) 1.5 K/uL (1.0-4.3) 04/01/19 06:44 [place] # (Auto) 0.8 K/uL (0.0-0.8) 04/01/19 06:44 Eos # (Auto) 0.2 K/uL (0.0-0.7) 04/01/19 06:44 Baso # (Auto) 0.0 K/uL (0.0-0.2) 04/01/19 06:44 Neutrophils % (Manual) 90 % (50-75) H 03/28/19 22:16 Lymphocytes % (Manual) 7 % (20-40) L 03/28/19 22:16 Monocytes % (Manual) 3 % (0-10) 03/28/19 22:16 Platelet Estimate Normal (NORMAL) 03/28/19 22:16 RBC Morphology Normal 03/28/19 22:16 PT 12.7 SECONDS (9.7-12.2) H 03/29/19 06:09 INR 1.2 03/29/19 06:09 APTT 31.3 SECONDS (21-34) 03/29/19 06:09 Sodium 134 mmol/L (132-148) 04/01/19 06:44 Potassium 3.5 mmol/L (3.6-5.2) L 04/01/19 06:44 Chloride 99 mmol/L (98-107) 04/01/19 06:44 Carbon Dioxide 29 mmol/L (22-30) 04/01/19 06:44 Anion Gap 10 (10-20) 04/01/19 06:44 BUN 13 mg/dL (9-20) 04/01/19 06:44 Creatinine 1.3 mg/dL (0.8-1.5) 04/01/19 06:44 Est GFR ( Amer) > 60 04/01/19 06:44 Est GFR (Non-Af Amer) > 60 04/01/19 06:44 Random Glucose 112 mg/dL (75-110) H 04/01/19 06:44 Calcium 8.3 mg/dl (8.6-10.4) L 04/01/19 06:44 Total Bilirubin 0.5 mg/dL (0.2-1.3) 03/28/19 22:16 AST 25 U/L (17-59) 03/28/19 22:16 ALT 31 U/L (21-72) 03/28/19 22:16 Alkaline Phosphatase 73 U/L (38-126) 03/28/19 22:16 Total Protein 8.7 g/dL (6.3-8.3) H 03/28/19 22:16 Albumin 4.5 g/dL (3.5-5.0) 03/28/19 22:16 Globulin 4.2 gm/dL (2.2-3.9) H 03/28/19 22:16 Albumin/Globulin Ratio 1.1 (1.0-2.1) 03/28/19 22:16 Lipase 81 U/L (23-300) 03/28/19 22:16 Urine Color Yellow (YELLOW) 03/28/19 22:16 Urine Clarity Hazy (Clear) 03/28/19 22:16 Urine pH 5.0 (5.0-8.0) 03/28/19 22:16 Ur Specific [place] 1.024 (1.003-1.030) 03/28/19 22:16 Urine Protein Negative mg/dL (NEGATIVE) 03/28/19 22:16 Urine Glucose (UA) Normal mg/dL (Normal) 03/28/19 22:16 Urine Ketones 2+ mg/dL (NEGATIVE) H 03/28/19 22:16 Urine Blood 2+ (NEGATIVE) H 03/28/19 22:16 Urine Nitrate Negative (NEGATIVE) 03/28/19 22:16 Urine Bilirubin Negative (NEGATIVE) 03/28/19 22:16 Urine Urobilinogen Normal mg/dL (0.2-1.0) 03/28/19 22:16 Ur Leukocyte Esterase Neg [place]/uL (Negative) 03/28/19 22:16 Urine WBC (Auto) 1 /hpf (0-5) 03/28/19 22:16 Urine RBC (Auto) 4 /hpf (0-3) H 03/28/19 22:16 Ur Squamous Epith Cells 1 /hpf (0-5) 03/28/19 22:16 Blood Type O NEGATIVE 03/29/19 06:09 Antibody Screen Negative 03/29/19 06:09 - Hospital Course Hospital Course: 43 year old male with no significant past medical history who presented to [facility] with right lower quadrant pain for over a week with associated nausea, vomiting. Upon further work up including CT imaging, labs, and clinical exam, patient found to have acute appendicitis. Patient was admitted and taken to the OR for laparoscopic appendectomy. Patient tolerated the procedure with no complications. A drain was placed at that time. Patient continued to receive IV antibiotics. He was able to tolerate a diet, ambulate, and have bowel movements. Patient cleared for discharge on 04/02 with ciprofloxacin and flagyl. Discharge instructions were provided. All questions and concerns addressed. Patient acknowledged and verbalized understanding of treatment plan. Instructed to return to the ED if symptoms worsen. Above is a brief summary, for detailed hospital encounter please refer to medical records. Discharge Exam - Head Exam Head Exam: ATRAUMATIC, NORMAL INSPECTION, NORMOCEPHALIC - Eye Exam Eye Exam: EOMI - ENT Exam ENT Exam: Mucous Membranes Moist - Respiratory Exam Respiratory Exam: Clear to PA & Lateral, NORMAL BREATHING PATTERN. absent: Rales, Rhonchi, Wheezes, Respiratory Distress - Cardiovascular Exam Cardiovascular Exam: REGULAR RHYTHM. absent: Tachycardia - GI/Abdominal Exam GI & Abdominal Exam: Normal Bowel Sounds, Soft, Tenderness. absent: Distended, Guarding, Rebound - Extremities Exam Extremities exam: normal inspection, pedal pulses present - Neurological Exam Neurological exam: Alert, Oriented x3 - Psychiatric Exam Psychiatric exam: Normal Affect, Normal Mood - Skin Skin Exam: Dry, Intact, Normal Color, Warm Additional comments: surgical incisions c/d/i Discharge Plan - Discharge Medications Prescriptions: Ciprofloxacin [Cipro] 500 mg PO BID #10 tab Docusate Sodium [Colace] 100 mg PO BID #20 capsule metroNIDAZOLE [Flagyl] 500 mg PO BID #10 tab - Follow Up Plan Condition: GOOD Disposition: HOME/ ROUTINE Instructions: High Fiber Diet, Appendicitis, Adult (DC), Oxycodone and Acetaminophen, Appendectomy, Laparoscopic Surgery (DC) Additional Instructions: No heavy lifting for 4-6 weeks Ok to resume normal diet Ok to shower- do not sit in water, wash your incisions gently with soap and water If you take the strong pain medication, please also take the stool softener, drink plenty of water and eat high fiber foods You are being discharged on 2 antibiotics, please take one pill of each one twice a day for 5 days and eat yogurt or take a probiotic while taking antibiotics to prevent diarrhea Please call Dr. Glaser's office to set up a follow up appointment in 1-2 weeks Referrals: Greg Glaser MD [Staff Provider] -
[2019-04-02] MEDS ORDERED: Albuterol-Ipratrop 3 mg / 0.5 (3 ml) UD INH STA (14:04)
[2019-04-02 16:30] VITALS: BP 123/73; PULSE 72; TEMP 98.9; O2SAT 96
== END 2019-04-02 18:33 | disposition home or self-care (01) | DRG 883 ==
LOC: C.ER 21:28 → C.3T 03-29 02:46
PROVIDERS: ADMIT Surgery; ATTEND Surgery
PROC: 0DTJ4ZZ Resection of Appendix, Percutaneous Endoscopic Approach (ICD-10-PCS; principal; 2019-03-29 10:30)
DX: K35.80 Unspecified acute appendicitis (principal); K40.90 Unilateral inguinal hernia, without obstruction or gangrene, not specified as recurrent